=== PATIENT | male | born 1980 | race Caucasian/White ===

== ENCOUNTER → 2017-09-14 12:34 | Outpatient (CLI) | payer BC, SELFPAY ==
--- NOTE | 2017-09-14 12:41 | CT_ITS ---
STUDY: CT CHEST WITH CONTRAST REASON FOR EXAM: Male, 37 years old. Dyspnea. RADIATION DOSAGE (If Supplied By Facility): CTDIvol = ( 16.72 ) mGy, DLP = ( 726.62 ) mGycm TECHNIQUE: Transaxial imaging was performed following intravenous administration of 100 ml of Isovue 300 contrast material. Multiplanar coronal and sagittal images were reformatted. Individualized dose optimization techniques were used for this CT. COMPARISON: None. FINDINGS: The lungs are normal. There is no demonstrated pleural abnormality. Normal heart and pericardium. Normal mediastinum. Normal hilar regions. There are multiple bilateral intraluminal filling defects in both pulmonary arteries and branches. Normal aorta arch and descending thoracic aorta. Normal osseous structures. Fatty infiltration of the liver. Small hiatal hernia. CT/Chest WITH Contrast IMPRESSION: Diffuse bilateral pulmonary embolism. The referring physician was notified. Electronically Signed: Richard Bello MD at 13:39 EDT Tel [phone], Service support ,
== END ==
PROVIDERS: Family Provider Family Medicine; PCP Family Medicine; Visit Provider Family Medicine
DX: R06.00 Dyspnea, unspecified (principal)
CPT/HCPCS: 71260; Q9967

== ENCOUNTER 2017-09-14 14:20 | Emergency (ER) | payer BC, SELFPAY ==
[2017-09-14 14:20] VITALS: BP 158/73; PULSE 80; RESP 16; TEMP 37.4; O2SAT 98; BMI 36.2
--- NOTE | 2017-09-14 14:27 | EKG12_ITS ---
Test Reason : BLOOD CLOT Blood Pressure : / mmHG Vent. Rate : 083 BPM Atrial Rate : 083 BPM P-R Int : 138 ms QRS Dur : 102 ms QT Int : 376 ms P-R-T Axes : 031 065 037 degrees QTc Int : 441 ms Normal sinus rhythm Normal ECG Reconfirmed by RANI DONOHUE, RODOLFO ([id number]), film editor DEVONTE WHITEHEAD ([id number]) on 09/17/2017 1:51:51 PM Referred By: PEYTON Confirmed By:RODOLFO SARAVIA MD
[2017-09-14 15:03] LABS: Anion Gap 8 (5-15); BUN 15 mg/dL (7-18); BUN/Creat Ratio 12.5 RATIO (10-20); Calcium,Total 9.1 mg/dL (8.5-10.1); Chloride 107 mmol/L (98-107); EST Glomerular Filtration Rate 72 mL/min (>60); Est Glom Filt Rate - Afr Amer 88 mL/min (>60); Estimated Creatinine Clearance 103.48 ml/min; Glucose 97 mg/dL (74-106); Potassium 3.7 mmol/L (3.5-5.1); Sodium Level 141 mmol/L (136-145)
[2017-09-14 15:08] LABS: BNP,B-Type NATRIURETIC PEPTIDE 15.3 pg/mL (0-100)
--- NOTE | 2017-09-14 15:12 | ED.VISSUMM ---
- ER Visit Summary Date of Service: 09/14/17 Chief Complaint: Dyspnea, dyspnea on exertion and intermittent left-sided chest pain History of Present Illness: The patient is a 37 M who fell approximately 15 feet 2 months ago fracturing his left scapula with multiple soft tissue injuries to the abdomen and thighs. He noted some tightness and discomfort distal aspect of right calf 1 week ago. This past weekend he had left-sided pleuritic chest pain with shortness of breath and dyspnea on exertion. He denies any fever, chills night sweats. He denies any ocular, auditory or visual symptoms. He denies cough or hemoptysis. He denies prior history of PE or DVT. He denies hematemesis, melena hematochezia or prior history of peptic ulcer disease. He is presently on no medication. He reports no allergies. Physical Examination: Vital signs are remarkable for blood pressure 158/73. Pulse is 80, respiratory rate 16 and pulse ox on room air 98%. Patient appears in no distress. HEENT is unremarkable. Heart is regular without murmur, gallop or rub. S1 and S2 are normal. Lungs are clear to auscultation with good movement of air bilaterally. Examination lower extremity reveals swelling of the right calf compared to left with tenderness. Findings are concerning for DVT since he has a outpatient CTA that reveals bilateral pulmonary embolus. Test Results: BMP, troponin and BNP were obtained and are all normal Emergency Department Course and Treatment: She was obtained which reveals a sinus rhythm with no evidence of right heart strain. Blood work was obtained to evaluate for significant PE since the outpatient CTA reveals bilateral PE. Treatment Plan: He is hemodynamic is stable with no tachypnea hypoxia and workup is negative other than the outpatient CTA he will be treated with Eliquis. He was informed of his benefits of Coumadin versus Xarelto versus Eliquis. After informing him of the risks benefits and limitations of all meds and risk for bleeding with all meds he elected Eliquis. He received his first dose in the emergency department. He was given a prescription for 7 days of 10 mg twice a day followed by 5 mg twice a day for the next 3-6 months. Duration will be determined by his primary care physician, Dr. ALFRED Galvez Disposition: Discharged to home Impression: Bilateral pulmonary embolus This note was generated with [employer] software. It may contain incorrect words, spelling, and punctuation that were not noted in review of the chart prior to signing ED Disposition - Plan for ED Patient: Disposition: Home or Assisted Living Chief Complaint: Chest Other Instructions: Discharge Instructions for Pulmonary Embolism Prescriptions: Apixaban [Eliquis] 5 mg PO BID #60 tab Apixaban [Eliquis] 10 mg PO BID #26 [email or web address] Referrals: Tre Galvez MD [Primary Care Provider] - 1-2 Weeks
[2017-09-14] MEDS: APIXABAN 5 MG TABLET 10 MG PO (15:21)
[2017-09-14 15:24] VITALS: BP 128/69; PULSE 73; RESP 15; O2SAT 97
== END 2017-09-14 15:25 | disposition home or self-care (01) ==
PROVIDERS: Emergency Provider Emergency Medicine; Family Provider Family Medicine; PCP Family Medicine
DX: I26.99 Other pulmonary embolism without acute cor pulmonale (principal); Z87.81 Personal history of (healed) traumatic fracture; E66.9 Obesity, unspecified
CPT/HCPCS: 71260; 80048; 83880; 84484; 93005; 99283; Q9967; A4216